=== PATIENT | female | born 1975 | race Caucasian/White ===

== ENCOUNTER → 2021-02-07 13:24 | Outpatient (CLI) | payer OTHER, SELFPAY ==
--- NOTE | ~2021-02-07 | MM_ITS ---
EXAMINATION: MM screening [facility] BI w denys HISTORY: Screening mammogram TECHNIQUE: Craniocaudal and mediolateral oblique 3-D tomosynthesis images were obtained and synthetic 2-D images were generated. CAD analysis was submitted and interpreted. COMPARISON: 10/26/2019, 08/19/2018, 01/20/2017 bilateral digital screening mammogram examinations 01/29/2017 diagnostic right mammogram and complete right breast ultrasound examination BREAST PARENCHYMAL COMPOSITION: The breasts are extremely dense, which lowers the sensitivity of mamm ography. FINDINGS: Occasional bilateral punctate benign microcalcifications. There is no evidence of suspiciou s mass, calcification, or architectural distortion to suggest malignancy in either breast. There has been no suspicious interval change. IMPRESSION: 1. No mammographic evidence of malignancy. 2. Recommend routine screening mammography in one year. BI-RADS Category 1: Negative Reviewed, dictated and finalized at location A.
== END ==
PROVIDERS: PCP Physician Assistant; Visit Provider Physician Assistant
DX: Z12.31 Encounter for screening mammogram for malignant neoplasm of breast (principal)
CPT/HCPCS: 77063; 77067

== ENCOUNTER → 2022-06-29 14:55 | Outpatient (CLI) | payer OTHER, SELFPAY ==
--- NOTE | ~2022-06-29 | MM_ITS ---
EXAMINATION: MM screening [facility] BI w denys HISTORY: Screening mammogram TECHNIQUE: Craniocaudal and mediolateral oblique 3-D tomosynthesis images were obtained and synthetic 2-D images were generated. CAD analysis was submitted and interpreted. COMPARISON: 02/07/2021, 10/26/2019 BREAST PARENCHYMAL COMPOSITION: The breasts are extremely dense, which lowers the sensitivity of mamm ography. FINDINGS: RIGHT BREAST: There is no suspicious mass, calcification, or architectural distortion to suggest amber gnancy. There has been no significant interval change. LEFT BREAST: There is a possible mass posterior third of the upper outer quadrant of the breast. IMPRESSION: 1. Possible left breast mass. 2. Additional mammographic views and possible breast ultrasound are recommended. BI-RADS Category 0: Incomplete: Needs additional imaging evaluation. Reviewed, dictated and finalized at location A. IMPRESSION: 1. Possible left breast mass. 2. Additional mammographic views and possible breast ultrasound are recommended . BI-RADS Category 0: Incomplete: Needs additional imaging evaluation.
== END ==
PROVIDERS: PCP Physician Assistant; Visit Provider Physician Assistant
DX: Z12.31 Encounter for screening mammogram for malignant neoplasm of breast (principal); R92.8 Other abnormal and inconclusive findings on diagnostic imaging of breast
CPT/HCPCS: 77063; 77067

== ENCOUNTER → 2022-07-21 08:20 | Outpatient (CLI) | payer OTHER, SELFPAY ==
--- NOTE | ~2022-07-21 | MMUS_ITS ---
EXAMINATION: MM diagnostic angela LT w denys, US breast LT limited HISTORY: Possible left breast mass on screening mammogram TECHNIQUE: Additional 3-D tomosynthesis images of the left breast were performed and synthetic 2-D im ages were generated. CAD analysis was submitted and interpreted. High resolution limited left breast ultrasound was performed. COMPARISON: 06/29/2022, 02/07/2021, 10/26/2019 FINDINGS: MAMMOGRAPHIC FINDINGS: There is a 1.4 cm oval, obscured, low density mass in the far posterior third of the slightly upper i nner breast at the 11:00 location 7 cm from the nipple. No suspicious mass, calcification, or archite ctural distortion are identified. ULTRASOUND: There there are multiple cysts in the breast including a 1.4 cm cyst at the 11:00 location 3 cm from the nipple corresponding to the mammographic finding in question. No suspicious cystic or solid mass is identified. IMPRESSION: 1. No mammographic or sonographic evidence of malignancy. 2. Recommend routine screening mammography in one year. BI-RADS Category 2: Benign finding(s). Reviewed, dictated and finalized at location A. IMPRESSION: 1. No mammographic or sonographic evidence of malignancy. 2. Recommend routine screening mammography in one year. BI-RADS Category 2: Benign finding(s).
== END ==
PROVIDERS: PCP Physician Assistant; Visit Provider Physician Assistant
DX: R92.8 Other abnormal and inconclusive findings on diagnostic imaging of breast (principal); N60.02 Solitary cyst of left breast
CPT/HCPCS: 76642; 77061; 77065; G0279

== ENCOUNTER 2023-05-01 16:33 | Emergency (ER) | payer OTHER, SELFPAY ==
[2023-05-01 16:33] VITALS: BP 148/85; PULSE 101; RESP 20; TEMP 36.3; O2SAT 97
[2023-05-01] MEDS: LIDOCAINE HCL 1% LOCAL INJ 10 ML VIAL INFILTRATE (16:50)
[2023-05-01] MEDS: TETANUS,DIPHTHERIA,AC PERTUSSIS ADULT 0.5 ML (ADACEL) (16:50)
--- NOTE | 2023-05-01 17:01 | ED_ITS ---
HPI - Wound/Laceration General Stated Complaint: right foot lac Time Seen by Provider: 05/01/23 16:39 Source: patient Mode of arrival: ambulatory Limitations: no limitations History of Present Illness HPI narrative: this is a 47-year-old female who presents with a gaping laceration approximately 3cm in length to lateral aspect of her earlier this afternoon after she cut it while she was outdoors on unknown object. Otherwise has a good range of motion no numbness or tingling in her feet or toes. Onset (ago): hour(s) Extremity Location: Right: foot ( 3cm laceration gaping lateral aspect of her right foot) Place: outdoors Patient tetanus UTD: No Context: accidental Related Data Home Medications Medication Instructions Recorded Confirmed No Home Medications 05/01/23 05/01/23 Allergies Allergy/AdvReac Type Severity Reaction Status Date / Time Sulfa (Sulfonamide Allergy Intermediate Hives / Verified 08/24/12 15:24 Antibiotics) Red Face Review of Systems Review of Systems: All systems reviewed & are unremarkable except as noted in HPI and below PMFSH Past Medical History Medical History Patient denies medical problems Exam Const: General: healthy appearing Nutritional Appearance: well nourished Eyes: Conjunctivae: conjunctivae normal Pupils: Equal, round and reactive pupils present Resp: Effort & Inspection: normal respiratory effort Auscultation: clear to auscultation bilaterally Cardio: Rate: regular rate Rhythm: regular rhythm Skin: Wounds: wounds noted Neuro: General: patient oriented x3 and moves all extremities Extrem: General: normal to inspection and no clubbing, cyanosis or edema Psych: Mental Status: mental status grossly normal Affect: normal affect Course Course Emergency Course: sutures placed patient tolerated procedure well 7 sutures were were placed lidocaine was given and patient was updated with her tetanus and sent antib iotics to her local pharmacy and printed script. Procedures Laceration Laceration 1: Date: 05/01/23 Time: 17:04 Site: lower extremity Side (If applicable): right Size (cm): 3 Description: linear Depth: simple, single layer Local Anesthetic: lidocaine 1% Amount of anesthesia used (mL): 8 Pre-repair: wound explored, irrigated and irrigated extensively ====== Skin Level ====== Skin layer closed with: vicryl Size (cm): 4-0 Number of sutures: 7 Technique: simple, interrupted ====== Subcutaneous Layer ====== ====== Muscle Layer ====== ====== Tendon Layer ====== Discharge Plan Discharge Clinical Impression: Laceration Patient Disposition: Home, Self-Care Condition: Stable Instructions: Antibiotic Form, Laceration (ED) Additional Instructions: advised to take medicine as prescribed, follow-up with primary in 7 to 10 days for suture removal. Prescriptions: New amoxicillin-pot clavulanate [Augmentin] 500-125 mg tablet 1 tablet PO TID Qty: 30 0RF No Action No Home Medications Follow-up/Referrals: Sadaf,LISANDRO Moyer [Primary Care Provider] - Time of Disposition: 17:07
[2023-05-01 17:15] VITALS: BP 148/85; PULSE 94; RESP 20; TEMP 36.3; O2SAT 97
== END 2023-05-01 17:20 | disposition home or self-care (01) ==
LOC: CHSED 17:10
PROVIDERS: Emergency Provider Emergency Medicine; PCP Physician Assistant
DX: S91.312A Laceration without foreign body, left foot, initial encounter (principal); Z23 Encounter for immunization; W45.8XXA Other foreign body or object entering through skin, initial encounter
CPT/HCPCS: 12002; 90471; 90715; 99283

== ENCOUNTER → 2023-09-27 12:06 | Outpatient (CLI) | payer OTHER, SELFPAY ==
--- NOTE | ~2023-09-27 | MM_ITS ---
EXAMINATION: MM screening [facility] BI w denys HISTORY: Screening mammogram TECHNIQUE: Craniocaudal and mediolateral oblique 3-D tomosynthesis images were obtained and synthetic 2-D images were generated. CAD analysis was submitted and interpreted. COMPARISON: 07/21/2022 diagnostic left mammogram and limited left breast ultrasound 02/17/2021, 10/26/2019 bilateral screening mammogram examinations BREAST PARENCHYMAL COMPOSITION: The breasts are extremely dense, which lowers the sensitivity of mamm ography. FINDINGS: Bilateral breast masses are suggested, partially obscured by the extremely dense fibrogland ular stroma.. Diagnostic bilateral mammogram and bilateral complete breast ultrasound examination are recommended. IMPRESSION: 1. Bilateral breast masses 2. Bilateral diagnostic mammography and breast ultrasound examination are recommended BI-RADS Category 0: Incomplete: Needs additional imaging evaluation. Reviewed, dictated and finalized at location A. DETAILER IMPRESSION: 1. Bilateral breast masses 2. Bilateral diagnostic mammography and breast ultrasound examination are recom mended BI-RADS Category 0: Incomplete: Needs additional imaging evaluation.
== END ==
PROVIDERS: PCP Physician Assistant; Visit Provider Obstetrics & Gynecology
DX: Z12.31 Encounter for screening mammogram for malignant neoplasm of breast (principal); R92.8 Other abnormal and inconclusive findings on diagnostic imaging of breast
CPT/HCPCS: 77063; 77067

== ENCOUNTER → 2023-10-15 08:17 | Outpatient (CLI) | payer OTHER, SELFPAY ==
--- NOTE | ~2023-10-15 | MMUS_ITS ---
EXAMINATION: MM diagnostic [facility] BI w denys, US breast BI complete HISTORY: Follow-up bilateral breast asymmetries TECHNIQUE: Additional 3-D tomosynthesis images of the breasts were performed and synthetic 2-D images were generated. CAD analysis was submitted and interpreted. High resolution bilateral complete breas t ultrasound was performed. COMPARISON: None Comparison to multiple prior studies sequentially, with oldest reviewed study dated 08/19/2018. BREAST PARENCHYMAL COMPOSITION: The breasts are extremely dense, which lowers the sensitivity of mamm ography FINDINGS: MAMMOGRAPHIC FINDINGS: There is a mass in the upper central aspect of the right breast posteriorly which is obscured by over lying fibroglandular tissue. This mass measures approximately 12 mm on spot MLO view. There are annette s located centrally in the left breast on CC view and in the lateral periareolar aspect of the left b reast on CC view. ULTRASOUND: Complete bilateral US of all 4 quadrants of the breasts and retroareolar region was reviewed. Right breast: At 2:00, 5 cm from the nipple, there is a complicated septated 1.2 cm cyst with low-lev el internal echoes. There are multiple additional simple cysts of the right breast. At 3:00, 4 cm fro m the nipple there is an oval hypoechoic mass with heterogeneous internal echotexture measuring 6 x 4 x 4 mm without internal vascularity or posterior features. At 10:00, 5 cm from the nipple there is a n irregular shaped heterogeneous partially cystic 5 mm mass without internal vascularity or significa nt posterior features. Left breast: Multiple simple and complicated cysts of the left breast. At 7:00, 4 cm from the nipple there is a heterogeneous oval hypoechoic 11 mm mass with internal cystic changes and solid components . There is posterior acoustic enhancement with no internal vascularity. At 7:00, 5 cm from the nipple there is an oval hypoechoic heterogeneous mass measuring 8 mm with parallel orientation, no internal vascularity and no significant posterior features. IMPRESSION: 1. Multiple complex bilateral breast masses which are not compatible with cysts. 2. Recommend correlation with MRI of the breasts for further characterization of the solid masses. BI-RADS Category 0: Incomplete: Needs additional imaging evaluation. Reviewed, dictated and finalized at location A. MING COACH OR INSTRUCTOR IMPRESSION: 1. Multiple complex bilateral breast masses which are not compatible with cysts . 2. Recommend correlation with MRI of the breasts for further characterization o f the solid masses. BI-RADS Category 0: Incomplete: Needs additional imaging evaluation.
== END ==
PROVIDERS: PCP Physician Assistant; Visit Provider Obstetrics & Gynecology
DX: N63.0 Unspecified lump in unspecified breast (principal); R92.8 Other abnormal and inconclusive findings on diagnostic imaging of breast
CPT/HCPCS: 76641; 77062; 77066; G0279

== ENCOUNTER 2023-10-18 09:26 | Day surgery (SDC) | payer OTHER, SELFPAY ==
--- NOTE | 2023-10-15 15:38 | PM.HPGS ---
History of Present Illness History of Present Illness Consent: Risks, benefits, and alternatives have been discussed and questions answered. Patient agrees to proceed with procedure. Chief complaint: Neoplasm Screening Narrative: Diann Quintero is a 48 year old female Referred for colon cancer screening. Review of Systems Review of Systems: All systems reviewed & are unremarkable except as noted in HPI and below PMFSH Past Medical History Medical History Anxiety Breast mass seen on mammogram Chiari I malformation Patient denies medical problems Screening mammogram, encounter for Surgical History Surgical History History of hysteroscopy (10/22/11) suction D&C Missed AB History of hysteroscopy (~2007) Suction D&C Missed AB 6 weeks Hx of biopsy (10/03/09) vulvar lesion biopsy Family History Family History Mother Hypertension Carcinoma of colon Father Hypertension Grandparent Breast cancer maternal grandmother Other Breast cancer maternal aunt Sibling Primary malignant neoplasm of thyroid gland brother Social History Social History Smoking status: Never smoker Alcohol intake: current Drinks per week: 1 Alcohol use details: 5-6 per month Substance use: never Substance use type: does not use Living arrangements: other Additional living arrangements comments: Occupation/Education: occupation 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 Gender identity (if verbalized by the patient): Female Sexual Orientation (if Verbalized by the Patient): Straight or Heterosexual Spiritual care concerns: No Meds Home Medications and Allergies Home Medications Medication Instructions Recorded Confirmed Type No Home Medications 05/01/23 10/18/23 History Allergies Allergy/AdvReac Type Severity Reaction Status Date / Time Sulfa (Sulfonamide Allergy Intermediate Hives / Verified 10/18/23 10:07 Antibiotics) Red Face Exam Const: General: alert Orientation/consciousness: patient oriented x3 Resp: Auscultation: clear to auscultation bilaterally Cardio: Rhythm: regular rhythm GI: GI Palp: Yes Soft to palpation and No Tenderness to palpation present (GI) Neuro: General: patient oriented x3 Assessment and Plan Assessment and plan (1) Colon cancer screening: Code(s): Z12.11 - Encounter for screening for malignant neoplasm of colon Status: Acute Assessment and Plan: Colonoscopy with possible biopsy or polypectomy or cautery or injection of substances.
--- NOTE | 2023-10-18 08:12 | P.PNAN_ITS ---
Anes - Initial Pre Proc Eval Procedure: Operation Date: 10/18/23 11:30 Proposed Procedures p Screening Colonoscopy - Benoit Kaur MD Date/Time: 10/18/23 08:12 Surgeon: Benoit Kaur MD Pre Op Diagnosis: Neoplasm Screening Patient Data Age: 48 Gender: F Height: 1.68 m Weight: 65.77 kg Allergies Allergy/AdvReac Type Severity Reaction Status Date / Time Sulfa (Sulfonamide Allergy Intermediate Hives / Verified 10/18/23 10:07 Antibiotics) Red Face Home Medications Medication Instructions Recorded Confirmed Type No Home Medications 05/01/23 10/18/23 History Patient hx anesthesia problems: none Family hx anesthesia problems: none Results Review: All pre-operative results and documents have been reviewed as part of the pre- operative evaluation. [facility] Past Medical History Medical History Anxiety Breast mass seen on mammogram Chiari I malformation Patient denies medical problems Screening mammogram, encounter for Surgical History Surgical History History of hysteroscopy (10/22/11) suction D&C Missed AB History of hysteroscopy (~2007) Suction D&C Missed AB 6 weeks Hx of biopsy (10/03/09) vulvar lesion biopsy Family History Family History Mother Hypertension Carcinoma of colon Father Hypertension Grandparent Breast cancer maternal grandmother Other Breast cancer maternal aunt Sibling Primary malignant neoplasm of thyroid gland brother Social History Social History Smoking status: Never smoker Alcohol intake: current Drinks per week: 1 Alcohol use details: 5-6 per month Substance use: never Substance use type: does not use Living arrangements: other Additional living arrangements comments: Occupation/Education: occupation 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 Gender identity (if verbalized by the patient): Female Sexual Orientation (if Verbalized by the Patient): Straight or Heterosexual Spiritual care concerns: No Anes - Eval Final PreProcedure Day of Procedure 10/18/23 08:12 Patient weight: overweight Heart: regular rate and rhythm Lungs: clear to auscultation Airway: Mallampati scale class II Neurological: alert and oriented Last oral intake: >/= 8 hours ASA classification: III Emergent: no Anesthetic plan: proceed Anesthesia type and monitoring: general GIVS and standard monitoring Results Review: All pre-operative results and documents have been reviewed as part of the pre- operative evaluation. Informed Consent: The patient's anesthetic plan and its attendant risks and benefits were discussed with the patient/family/POA. Questions were solicited and answers provided to the satisfaction of the patient/family/POA.
[2023-10-18 10:16] VITALS: BMI 26.0
[2023-10-18 10:17] VITALS: BP 154/89; PULSE 88; RESP 16; TEMP 37.2; O2SAT 100
[2023-10-18] MEDS: LACTATED RINGERS 1,000 ML 150 ML IV CONT (10:28)
[2023-10-18 11:29] VITALS: BP 118/71; PULSE 74; RESP 16; O2SAT 98
[2023-10-18 11:39] VITALS: BP 127/79; PULSE 75; RESP 18; O2SAT 99
[2023-10-18 11:49] VITALS: BP 128/80; PULSE 80; RESP 20; O2SAT 99
--- NOTE | 2023-10-18 11:55 | WPDANESPN ---
Anes - Prog Note Post-Op Date/Time: 10/18/23 11:55 Cardiovascular status: normal Respiratory status: normal Airway patency: baseline Mental status: baseline Post-Op hydration status: normal Vital Signs: Last Vital Signs Temp 37.2 C 10/18/23 10:17 Pulse 74 10/18/23 11:29 Resp 16 10/18/23 11:29 BP 118/71 10/18/23 11:29 Pulse Ox 98 10/18/23 11:29 O2 Del Method Room Air 10/18/23 11:29 Pain Score (VAS): 0 I/O: Intake & Output 10/17/23 10/18/23 10/18/23 23:59 07:59 15:59 Intake Total 300 Balance 300 Post-procedural complaints: none Patient Feedback: Patient satisfied with anesthetic care. Other Findings: Patient vital signs back to baseline. Patient denies nausea and vomiting. Patient's pain under control. Patient OK for discharge.
== END 2023-10-18 12:10 | disposition home or self-care (01) ==
PROVIDERS: PCP Physician Assistant; Visit Provider Internal Medicine Gastroenterology
PROC: 0DJD8ZZ Inspection of Lower Intestinal Tract, Via Natural or Artificial Opening Endoscopic (ICD-10-PCS; CPT 45378; principal; 2023-10-18 11:30)
DX: Z12.11 Encounter for screening for malignant neoplasm of colon (principal); K57.30 Diverticulosis of large intestine without perforation or abscess without bleeding
CPT/HCPCS: 45378

== ENCOUNTER 2023-11-02 10:39 | Outpatient (CLI) | payer OTHER, SELFPAY ==
--- NOTE | ~2023-11-02 | MR_ITS ---
EXAMINATION: MR breast BI wo/w con INDICATION: Bilateral indeterminate breast masses TECHNIQUE: Axial VIBRANT pre and dynamic post contrast, Sagittal VIBRANT post contrast, Axial T2 STIR ASSET COMPARISON: Diagnostic mammogram and ultrasound dated 10/15/2023 CONTRAST: Multihance, 14 cc BREAST COMPOSITION: Extreme fibroglandular tissue FINDINGS: RIGHT BREAST: There is marked background parenchymal enhancement. There are multiple simple cysts of the right breast. The largest measures 16 mm in the middle third of the central breast. No suspicious right breast mass is identified. No abnormal enhancement is present after contrast administration. N o pathologically enlarged axillary or internal mammary lymph nodes are identified. LEFT BREAST: There is marked background parenchymal enhancement. There are multiple simple cysts of t he left breast. The largest measures 1.6 cm and the subareolar aspect of the breast. There is a 1.1 x 0.7 cm cyst with thin internal septation in the anterior third of the lower inner breast correspondi ng to a complicated cystic and solid mass at the 7:00 location, 4 cm from the nipple on the compariso n ultrasound. No abnormal associated enhancement is identified. No pathologically enlarged axillary o r internal mammary lymph nodes are identified. IMPRESSION: 1. Benign bilateral breast cysts. No evidence of malignancy. Routine annual screening mammography is recommended. BI-RADS Category 2: Benign finding(s). Reviewed, dictated and finalized at location A. PROJECT COORDINATOR IMPRESSION: 1. Benign bilateral breast cysts. No evidence of malignancy. Routine annual scr eening mammography is recommended. BI-RADS Category 2: Benign finding(s).
== END 2023-11-02 10:40 | disposition home or self-care (01) ==
PROVIDERS: PCP Physician Assistant; Visit Provider Obstetrics & Gynecology
DX: N60.02 Solitary cyst of left breast (principal); N60.01 Solitary cyst of right breast
CPT/HCPCS: 77049; A9577; C8908